=== PATIENT | male | born 1955 | race Caucasian/White ===

== ENCOUNTER 2022-11-01 06:45 | Day surgery (SDC) | payer OTHER ==
[~2022-11-01] VITALS: Ht 152.4 cm; Wt 85.3 kg
[~2022-11-01 06:45] MED LIST: BACLOFEN5 MG PO; CIALIS5 MG PO; D3-5000125 MCG PO; LIPITOR20 MG PO; NEXIUM 24HR20 M1 PO; TIMOLOL MALEATE5 M2 OTIC; VOLNEA 0.15-0.1 EACH PO
== END 2022-11-01 16:15 | disposition home or self-care (01) ==
LOC: CIR.AMB 06:45
PROVIDERS: ATTEND Orthopaedic Surgery
DX: M75.121 Complete rotator cuff tear or rupture of right shoulder, not specified as traumatic (principal); Z88.8 Allergy status to other drugs, medicaments and biological substances; M75.21 Bicipital tendinitis, right shoulder; M24.111 Other articular cartilage disorders, right shoulder